=== PATIENT | female | born 1985 | race Hispanic/Latino ===

== ENCOUNTER 2018-01-24 21:31 | Emergency (ER) | payer SELFPAY ==
[2018-01-24] MEDS ORDERED: TETANUS/DIPHTHERIA TOXOID [ADULT] 0.5 ML VIAL IM ONE (22:32)
[2018-01-24] MEDS ORDERED: OCTYL 2-CYANOACRYLATE 1 EACH TP ONE (22:32)
== END 2018-01-24 23:09 | disposition home or self-care (01) ==
LOC: EDH 21:31
DX: S41.111A Laceration without foreign body of right upper arm, initial encounter (principal); F32.9 Major depressive disorder, single episode, unspecified; Z98.890 Other specified postprocedural states; W22.8XXA Striking against or struck by other objects, initial encounter; Y93.89 Activity, other specified; Y92.89 Other specified places as the place of occurrence of the external cause; Y99.8 Other external cause status
CPT/HCPCS: 12032; 73110; 90471; 90714

== ENCOUNTER 2022-11-04 09:03 | Emergency (ER) | payer OTHER ==
[~2022-11-04] VITALS: Ht 162.6 cm; Wt 98.9 kg
[2022-11-04 09:05] VITALS: BP 137/89
[2022-11-04] MEDS ORDERED: CYCLOBENZAPRINE HCL 10 MG TABLET PO SCH (10:00)
[2022-11-04] MEDS ORDERED: KETOROLAC 30MG VIAL (30MG/ML) IVP SCH (10:00)
[2022-11-04] MEDS ORDERED: GABAPENTIN 300 MG CAPSULE PO SCH (10:00)
[2022-11-04] MEDS ORDERED: GABA300C PO (10:24)
[2022-11-04] MEDS ORDERED: IBUP-1493 PO (10:24)
[2022-11-04] MEDS ORDERED: CYCL-309 PO (10:24)
[2022-11-04] MEDS ORDERED: MORPHINE 2 MG SYG IM SCH (10:30)
== END 2022-11-04 11:06 | disposition home or self-care (01) ==
LOC: EDH 09:03
DX: M54.50 Low back pain, unspecified (principal); Z98.890 Other specified postprocedural states
CPT/HCPCS: 99284; 96374; 72100; 96372; J1885